=== PATIENT | female | born 1985 | race Caucasian/White ===

== ENCOUNTER 2021-10-30 18:29 | Emergency (ER) | payer OTHER ==
[~2021-10-30] VITALS: Ht 165 cm; Wt 63.0 kg
[2021-10-30 18:49] VITALS: BP 116/71
[2021-10-30] MEDS ORDERED: NS IV 1000 ML 1,000 ML IV SCH (19:30)
[2021-10-30] MEDS ORDERED: ONDANSETRON 4 MG/2 ML (SDV) Z0FRAN IVP ONE (19:30)
[2021-10-30] MEDS ORDERED: FAMOTIDINE 20MG/2ML IV (PEPCID) IVP ONE (19:30)
[2021-10-30 19:43] LABS: BASOPHILS % (AUTO) 0 % (0-10); EOSINOPHILS % (AUTO) 0 % (0-10); HEMATOCRIT 41 % (35-52); HEMOGLOBIN 14.3 g/dL (11.5-16.0); LYMPHOCYTES # (AUTO) 0.9 10^3/uL (1.0-4.0); LYMPHOCYTES % (AUTO) 9 % (12-44); MEAN CORPUSCULAR HEMOGLOBIN 31 pg (25-34); MEAN CORPUSCULAR HGB CONC 35 g/dL (32-36); MEAN CORPUSCULAR VOLUME 90 fL (80-99); MEAN PLATELET VOLUME 9.5 fL (9.0-12.2); MONOCYTES # (AUTO) 0.3 10^3/uL (0.0-1.0); MONOCYTES % (AUTO) 3 % (0-12); NEUTROPHILS # (AUTO) 9.1 10^3/uL (1.8-7.8); NEUTROPHILS % (AUTO) 88 % (42-75); PLATELET COUNT 256 10^3/uL (130-400); WHITE BLOOD COUNT 10.4 10^3/uL (4.3-11.0)
[2021-10-30] MEDS ORDERED: IOHEXOL 350 MG/ML 100 ML (OMNIPAQUE 350) VIAL IV ONE (19:45)
[2021-10-30] MEDS ORDERED: NS 100 ML (IVPB) BAG IV ONE (19:45)
[2021-10-30 20:00] LABS: LYMPHOCYTES % (MANUAL) 6 %; MONOCYTES % (MANUAL) 5 %; NEUTROPHILS % (MANUAL) 89 %; RBC MORPH NORMAL
[2021-10-30 20:08] LABS: ALBUMIN 4.4 GM/DL (3.2-4.5); BILIRUBIN,TOTAL 0.8 MG/DL (0.1-1.0); CALCIUM 9.6 MG/DL (8.5-10.1); CREATININE SERUM 0.85 MG/DL (0.60-1.30); POTASSIUM 3.6 MMOL/L (3.6-5.0); TOTAL PROTEIN 7.5 GM/DL (6.4-8.2)
[2021-10-30 20:13] LABS: BILIRUBIN,URINE NEGATIVE (NEGATIVE); CLARITY,URINE CLEAR; COLOR,URINE YELLOW; GLUCOSE, URINE (UA) NEGATIVE (NEGATIVE); KETONES,URINE 1+ (NEGATIVE); LEUKOCYTE ESTERASE ,URINE NEGATIVE (NEGATIVE); NITRITE,URINE NEGATIVE (NEGATIVE); PROTEIN,URINE 2+ (NEGATIVE)
[2021-10-30 20:19] LABS: BACTERIA,URINE NEGATIVE /HPF
[2021-10-30 20:27] LABS: AMPHETAMINE SCREEN, URINE NEGATIVE (NEGATIVE); BARBITURATE SCREEN URINE NEGATIVE (NEGATIVE); BENZODIAZEPINES SCREEN URINE NEGATIVE (NEGATIVE); CANNABINOID SCREEN, URINE POSITIVE (NEGATIVE); COCAINE SCREEN URINE NEGATIVE (NEGATIVE); HCG,QUALITATIVE URINE NEGATIVE (NEGATIVE); METHADONE STAT NEGATIVE (NEGATIVE); OPIATE SCREEN URINE NEGATIVE (NEGATIVE); OXYCODONE STAT NEGATIVE (NEGATIVE); PROPOXYPHENE STAT NEGATIVE (NEGATIVE); TRICYCLIC ANTIDEPRESSANTS SCRE NEGATIVE (NEGATIVE)
--- NOTE | 2021-10-30 20:36 | Diagnostic Imaging Report ---
EXAMINATION: CT abdomen and pelvis with intravenous contrast. TECHNIQUE: Multiple contiguous axial images were obtained through the abdomen and pelvis after the uneventful administration of intravenous contrast. All CT scans use one or more of the following dose optimizing techniques: automated exposure control, MA and/or KvP adjustment based on patient size and exam type or iterative reconstruction. HISTORY: Abdominal pain. Nausea and vomiting. COMPARISON: None available. FINDINGS: The heart is unremarkable. The included lung bases are clear. The liver has a somewhat heterogeneous appearance. No focal hepatic lesions are seen. The portal vein is patent. The gallbladder is nondistended. Cholelithiasis is present. The spleen, pancreas, adrenal glands, and kidneys have a normal appearance. There is no pathologically enlarged mesenteric or retroperitoneal adenopathy. The bowel loops are nondilated. The appendix is visualized in the right lower quadrant/right pelvis and has a normal appearance. There is no free fluid or free air. No acute osseous abnormalities. The urinary bladder is decompressed. IUD is in place. Trace physiologic free fluid is seen in the pelvis. There is no free air, loculated collection, or adenopathy in the pelvis. IMPRESSION: 1. Heterogeneous appearance of the liver which is nonspecific and can be seen with hepatitis or cirrhosis. No focal hepatic lesions are seen. Recommend correlation with LFTs. 2. Cholelithiasis. Consider liver gallbladder ultrasound to further evaluate. 3. Trace physiologic free fluid in the pelvis. Dictated by: Dictated on workstation # [id number]
--- NOTE | 2021-10-30 21:24 | ED Abdominal Pain ---
General Chief Complaint: Abdominal/GI Problems Stated Complaint: NAUSEA Nursing Triage Note: PT REPORTS TO ED FOR NAUSEA THAT STARTED AROUND 0530 THIS MORNING. PER PT SHE FELT HAD ABD. CRAMPING AND WENT TO HAVE BM. AFTER HAVING A HARD/RUNNY STOOL PT FELT A WAVE OF NAUSEA THAT CONTINUED UNITL 1800. NAUSEA HAS IMPROVED BUT PT WOULD LIKE TO GET CHECKED OUT. SISTER IN LAW AT BEDSIDE. PT AMB. TO FT3 WITHOUT DIFFICULTY. History of Present Illness Date Seen by Provider: October 30, 2021 Time Seen by Provider: 19:20 Initial Comments 4-year-old female here with complaints of epigastric and right upper quadrant pain with multiple episodes of nausea and vomiting today at home. Symptoms were sudden onset. Denies fever, chills, diarrhea, chest pain, shortness of breath. No sick contacts. Allergies and Home Medications Allergies Uncoded Allergies: PENICILLIN (Allergy, Unknown, 10/30/21) Patient Home Medication List Home Medication List Reviewed: Yes Review of Systems Review of Systems Constitutional: no symptoms reported EENTM: No Symptoms Reported Respiratory: No Symptoms Reported Cardiovascular: No Symptoms Reported Gastrointestinal: Abdominal Pain, Nausea, Vomiting Genitourinary: No Symptoms Reported Musculoskeletal: no symptoms reported Skin: no symptoms reported Psychiatric/Neurological: No Symptoms Reported Endocrine: No Symptoms Reported Hematologic/Lymphatic: No Symptoms Reported Past Rjrsroa-Qdkxaf-Ujsxcx Hx Patient Social History Tobacco Use?: Yes Tobacco type used: Cigarettes Smoking Status: Current Everyday Smoker Smokeless Tobacco Frequency: Current Everyday User Use of E-Cig and/or Vaping dev: Yes E-Cig or Vaping type used: Other Additional E-Cig or Vaping: DELTA 8 Substance use?: No Substance type: Marijuana Additional substance use comme: LAST USED 04/2021. Alcohol Use?: No Alcohol type: Hard Liquor Alcohol Frequency: Daily Pt feels they are or have been: No Past Medical History Surgery/Hospitalization HX: PMH:DENIES. SURGERIES:RT AC ARTIERAL REPAIR 2014. Physical Exam Vital Signs Vital Signs - First Documented 10/30/21 18:49 Temp 36.9 Pulse 66 Resp 16 B/P (MAP) 116/71 (86) Pulse Ox 99 O2 Delivery Room Air Capillary Refill : Less Than 3 Seconds Height/Weight/BMI Height: '" Weight: lbs. oz. kg; 23.00 BMI Method: General Appearance: mild distress HEENT: PERRL/EOMI Neck: full range of motion Respiratory: lungs clear, normal breath sounds Cardiovascular: normal peripheral pulses, regular rate, rhythm Gastrointestinal: normal bowel sounds, soft, no organomegaly, tenderness (RUQ and epigastric) Extremities: normal range of motion Back: normal inspection, no CVA tenderness Neurologic/Psychiatric: alert, normal mood/affect, oriented x 3 Skin: normal color Lymphatic: no adenopathy Progress/Results/Core Measures Results/Orders Lab Results Laboratory Tests Test 10/30/21 19:36 10/30/21 20:05 Range/Units White Blood Count 10.4 4.3-11.0 10^3/uL Red Blood Count 4.58 3.80-5.11 10^6/uL Hemoglobin 14.3 11.5-16.0 g/dL Hematocrit 41 35-52 % Mean Corpuscular Volume 90 80-99 fL Mean Corpuscular Hemoglobin 31 25-34 pg Mean Corpuscular Hemoglobin Concent 35 32-36 g/dL Red Cell Distribution Width 14.0 10.0-14.5 % Platelet Count 256 130-400 10^3/uL Mean Platelet Volume 9.5 9.0-12.2 fL Immature Granulocyte % (Auto) 0 % Neutrophils (%) (Auto) 88 H 42-75 % Lymphocytes (%) (Auto) 9 L 12-44 % Monocytes (%) (Auto) 3 0-12 % Eosinophils (%) (Auto) 0 0-10 % Basophils (%) (Auto) 0 0-10 % Neutrophils # (Auto) 9.1 H 1.8-7.8 10^3/uL Lymphocytes # (Auto) 0.9 L 1.0-4.0 10^3/uL Monocytes # (Auto) 0.3 0.0-1.0 10^3/uL Eosinophils # (Auto) 0.0 0.0-0.3 10^3/uL Basophils # (Auto) 0.0 0.0-0.1 10^3/uL Immature Granulocyte # (Auto) 0.0 0.0-0.1 10^3/uL Neutrophils % (Manual) 89 % Lymphocytes % (Manual) 6 % Monocytes % (Manual) 5 % Blood Morphology Comment NORMAL Sodium Level 138 135-145 MMOL/L Potassium Level 3.6 3.6-5.0 MMOL/L Chloride Level 103 98-107 MMOL/L Carbon Dioxide Level 19 L 21-32 MMOL/L Anion Gap 16 H 5-14 MMOL/L Blood Urea Nitrogen 18 7-18 MG/DL Creatinine 0.85 0.60-1.30 MG/DL Estimat Glomerular Filtration Rate 92 BUN/Creatinine Ratio 21 Glucose Level 129 H 70-105 MG/DL Calcium Level 9.6 8.5-10.1 MG/DL Corrected Calcium 9.3 8.5-10.1 MG/DL Total Bilirubin 0.8 0.1-1.0 MG/DL Aspartate Amino Transf (AST/SGOT) 21 5-34 U/L Alanine Aminotransferase (ALT/SGPT) 20 0-55 U/L Alkaline Phosphatase 63 40-136 U/L Total Protein 7.5 6.4-8.2 GM/DL Albumin 4.4 3.2-4.5 GM/DL Lipase 18 8-78 U/L Serum Alcohol < 10 <10 MG/DL Urine Color YELLOW Urine Clarity CLEAR Urine pH 8.0 5-9 Urine Specific Mccausland 1.015 L 1.016-1.022 Urine Protein 2+ H NEGATIVE Urine Glucose (UA) NEGATIVE NEGATIVE Urine Ketones 1+ H NEGATIVE Urine Nitrite NEGATIVE NEGATIVE Urine Bilirubin NEGATIVE NEGATIVE Urine Urobilinogen 0.2 < = 1.0 MG/DL Urine Leukocyte Esterase NEGATIVE NEGATIVE Urine RBC (Auto) 1+ H NEGATIVE Urine RBC NONE /HPF Urine WBC 5-10 H /HPF Urine Squamous Epithelial Cells 2-5 /HPF Urine Renal Epithelial Cells NONE /HPF Urine Crystals NONE /LPF Urine Bacteria NEGATIVE /HPF Urine Casts NONE /LPF Urine Mucus NEGATIVE /LPF Urine Culture Indicated NO Urine Test NEGATIVE NEGATIVE Urine Opiates Screen NEGATIVE NEGATIVE Urine Oxycodone Screen NEGATIVE NEGATIVE Urine Methadone Screen NEGATIVE NEGATIVE Urine Propoxyphene Screen NEGATIVE NEGATIVE Urine Barbiturates Screen NEGATIVE NEGATIVE Ur Tricyclic Antidepressants Screen NEGATIVE NEGATIVE Urine Phencyclidine Screen NEGATIVE NEGATIVE Urine Amphetamines Screen NEGATIVE NEGATIVE Urine Methamphetamines Screen NEGATIVE NEGATIVE Urine Benzodiazepines Screen NEGATIVE NEGATIVE Urine Cocaine Screen NEGATIVE NEGATIVE Urine Cannabinoids Screen POSITIVE H NEGATIVE My Orders Orders - HA HALL MD Comprehensive Metabolic Panel (10/30/21 19:27) Lipase (10/30/21 19:27) Ua Culture If Indicated (10/30/21 19:27) Urine Bedside (10/30/21 19:27) Ed Iv/Invasive Line Start (10/30/21 19:27) Cbc With Automated Diff (10/30/21 19:27) Ct Abdomen/Pelvis W (10/30/21 19:27) Alcohol (10/30/21 19:28) Drug Screen Stat (Urine) (10/30/21 19:28) Hcg,Qualitative Urine (10/30/21 19:28) Ondansetron Injection (Zofran Injectio (10/30/21 19:30) Ed Iv/Invasive Line Start (10/30/21 19:29) Ns Iv 1000 Ml (Sodium Chloride 0.9%) (10/30/21 19:30) Famotidine Injection (Pepcid Injection) (10/30/21 19:30) Iohexol Injection (Omnipaque 350 Mg/Ml 1 (10/30/21 19:45) Ns (Ivpb) (Sodium Chloride 0.9% Ivpb Bag (10/30/21 19:45) Manual Differential (10/30/21 19:36) Medications Given in ED Current Medications Medications Dose Ordered Sig/Zuri Route Start Time Stop Time Status Last Admin Dose Admin Famotidine 20 mg ONCE ONCE IVP 10/30/21 19:30 10/30/21 19:32 DC 10/30/21 19:43 20 MG Iohexol 100 ml ONCE ONCE IV 10/30/21 19:45 10/30/21 19:46 DC 10/30/21 20:30 80 ML Ondansetron HCl 4 mg ONCE ONCE IVP 10/30/21 19:30 10/30/21 19:32 DC 10/30/21 19:43 4 MG Sodium Chloride 100 ml ONCE ONCE IV 10/30/21 19:45 10/30/21 19:46 DC 10/30/21 20:30 80 ML Vital Signs/I&O 10/30/21 18:49 Temp 36.9 Pulse 66 Resp 16 B/P (MAP) 116/71 (86) Pulse Ox 99 O2 Delivery Room Air Blood Pressure Mean: 86 Progress Progress Note : Progress Note 1. GALLSTONES: - CT ABD & PELVIS: Gallstones - labs unremarkable - UDS is positive for marijuana but pt states she takes Delta 8 - In ER, IVF, Toradol, Pepcid , Zofran - Advise admission to Observation for pain control, u/s in the morning, fluids and surgery consult but pt wants to leave AMA. Risks and benefits explained but pt states she will come back later and insists to leave AMA. Diagnostic Imaging Diagonstic Imaging: CT Plain Films/CT/US/NM/MRI: abdomen Comments [facility] [place], [place] NAME: CORWIN GARCIA [facility] REC#: [id number] PT STATUS: REG ER : 1985 PHYSICIAN: HA HALL MD ADMIT DATE: 10/30/21/ER Signed Date of Exam:10/30/21 CT ABDOMEN/PELVIS W EXAMINATION: CT abdomen and pelvis with intravenous contrast. TECHNIQUE: Multiple contiguous axial images were obtained through the abdomen and pelvis after the uneventful administration of intravenous contrast. All CT scans use one or more of the following dose optimizing techniques: automated exposure control, MA and/or KvP adjustment based on patient size and exam type or iterative reconstruction. HISTORY: Abdominal pain. Nausea and vomiting. COMPARISON: None available. FINDINGS: The heart is unremarkable. The included lung bases are clear. The liver has a somewhat heterogeneous appearance. No focal hepatic lesions are seen. The portal vein is patent. The gallbladder is nondistended. Cholelithiasis is present. The spleen, pancreas, adrenal glands, and kidneys have a normal appearance. There is no pathologically enlarged mesenteric or retroperitoneal adenopathy. The bowel loops are nondilated. The appendix is visualized in the right lower quadrant/right pelvis and has a normal appearance. There is no free fluid or free air. No acute osseous abnormalities. The urinary bladder is decompressed. IUD is in place. Trace physiologic free fluid is seen in the pelvis. There is no free air, loculated collection, or adenopathy in the pelvis. IMPRESSION: 1. Heterogeneous appearance of the liver which is nonspecific and can be seen with hepatitis or cirrhosis. No focal hepatic lesions are seen. Recommend correlation with LFTs. 2. Cholelithiasis. Consider liver gallbladder ultrasound to further evaluate. 3. Trace physiologic free fluid in the pelvis. Dictated by: Dictated on workstation # [id number] Dict: 10/30/212030 Trans: 10/30/212038 [facility] [id number] Interpreted by: MIRYAM CLEMENTE DO Electronically signed by: MIRYAM CLEMENTE DO 10/30/212038 Departure Impression Primary Impression: Gallstones Additional Impression: Abdominal pain Qualified Codes: R10.11 - Right upper quadrant pain Disposition: 07 AGAINST MEDICAL ADVICE Condition: Against Medical Advice Departure-Patient Inst. Referrals: NO,LOCAL PHYSICIAN (PCP/Family) Primary Care Physician HA HALL MD October 30, 2021 21:24
== END 2021-10-30 21:28 | disposition left against medical advice (07) ==
LOC: ER 18:32
DX: K80.20 Calculus of gallbladder without cholecystitis without obstruction (principal); F17.210 Nicotine dependence, cigarettes, uncomplicated; F17.290 Nicotine dependence, other tobacco product, uncomplicated
CPT/HCPCS: 74177; 80053; 80306; 81000; 83690; 84703 ×2; 85007; 85027; 99284; G0480; 36415; 80320

== ENCOUNTER 2021-12-07 05:29 | Outpatient (CLI) | payer OTHER ==
[~2021-12-07] VITALS: Ht 165 cm; Wt 61.0 kg
[2021-12-14] MEDS ORDERED: ACHD5005 PO (10:35)
[2021-12-14] MEDS ORDERED: DOCU-143 PO (10:35)
== END 2021-12-08 09:52 | disposition home or self-care (01) ==
LOC: PREOP 05:29
PROVIDERS: ATTEND Surgery
DX: Z01.818 Encounter for other preprocedural examination (principal)

== ENCOUNTER 2021-12-14 07:43 | Day surgery (SDC) | payer OTHER ==
[2021-12-14] VITALS (12 sets, daily range): BP systolic 96–148; BP diastolic 53–88
[~2021-12-14] VITALS: Ht 165 cm; Wt 61.0 kg
--- NOTE | 2021-12-14 07:58 | Progress Note-Pre Operative ---
Pre-Operative Progress Note H&P Reviewed The H&P was reviewed, patient examined and no changes noted. Date Seen by Provider: Dec 14, 2021 Time Seen by Provider: 07:58 Date H&P Reviewed: Dec 14, 2021 Time H&P Reviewed: 07:58 Pre-Operative Diagnosis: epigastric pain, cholelithiasis DANIELE DO DO Dec 14, 2021 07:58
[2021-12-14] MEDS ORDERED: CLINDAMYCIN 600 MG/50 ML IVPB 50 ML IV ONE (08:00)
[2021-12-14] MEDS: LACTATED RINGERS 1,000 ML IV PRN ×2 (08:11→10:10)
[2021-12-14] MEDS ORDERED: ROCURONIUM 50 MG/5 ML (ZEMURON) VIAL IV ONE (08:14)
[2021-12-14] MEDS ORDERED: fentaNYL INJ 100 MCG/2 ML AMP ONE (08:14)
[2021-12-14] MEDS ORDERED: LIDOCAINE PF 2% 5 ML (XYLOCAINE) VIAL ONE (08:14)
[2021-12-14] MEDS ORDERED: MIDAZOLAM 2 MG/2 ML (VERSED) VIAL ONE ×2 (08:14→08:32)
[2021-12-14] MEDS ORDERED: GLYCOPYRROLATE 0.2 MG/ML (ROBINUL) 2 ML VIAL ONE (08:14)
[2021-12-14] MEDS ORDERED: ONDANSETRON 4 MG/2 ML (SDV) Z0FRAN ONE ×2 (08:14→11:05)
[2021-12-14] MEDS ORDERED: proPOfol 200 MG/20 ML (DIPRIVAN) VIAL IV ONE (08:14)
[2021-12-14] MEDS ORDERED: NEOSTIGMINE (BLOXIVERZ ) 1 MG/1ML 10 ML VIAL ONE (08:14)
[2021-12-14] MEDS ORDERED: MIDAZOLAM 2 MG/2 ML (VERSED) VIAL IV ONE (08:30)
[2021-12-14] MEDS ORDERED: HYDROmorphone 2 MG/ML VIAL (DILAUDID) IV ONE (08:30)
[2021-12-14] MEDS ORDERED: ONDANSETRON 4 MG/2 ML (SDV) Z0FRAN IVP PRN (08:30)
[2021-12-14] MEDS ORDERED: morphine INJ 10 MG/ML 1ML (SYR OR VIAL) IVP ONE (08:30)
[2021-12-14] MEDS ORDERED: LIDOCAINE/EPI 1%-1:100,000 (XYLOCAINE) 20ML ONE (09:00)
[2021-12-14] MEDS ORDERED: HYDROmorphone 2 MG/ML VIAL (DILAUDID) ONE ×2 (10:28→11:04)
[2021-12-14] MEDS ORDERED: SEVOFLURANE (ULTANE) 15 ML INHAL SOLN ONE (10:32)
--- NOTE | 2021-12-14 10:34 | Progress Note-Post Operative ---
Post-Operative Progess Note Surgeon (s)/Technician Anatomic Pathology (s) Surgeon DANIELE DO DO Technician Anatomic Pathology: Dr. Gruber to assist in retraction dissection and closure. Pre-Operative Diagnosis epigastric pain, cholelithiasis Post-Operative Diagnosis same Procedure & Operative Findings Date of Procedure 12/14/21 Procedure Performed/Findings PROCEDURE: Laparoscopic cholecystectomy with intraoperative cholangiogram. COMPLICATIONS: None. PROCEDURE: The patient was taken to the operating suite and was prepped and draped in sterile fashion. A surgical pause was performed. Just superior to the umbilicus, a 12 mm incision was made. Dissection was taken down to the fascia, which was then scored and grasped with a Jack and the abdomen was then entered. A 0 Vicryl suture was placed in a [id number] fashion and a Yanes trocar was placed and secured. Pneumoperitoneum was achieved. A 5mm trochar place in the subxyphoid and 2 in the right upper quadrant. The gallbladder was then grasped and elevated. The cystic duct, and cystic artery were then dissected out. Clip was placed on the distal portion of the cystic duct which was then partially transected. An arrow catheter was inserted into the duct. The cholangiogram was then performed. No filing defects and contrast made its way into the duodenum. Catheter removed. Clips were placed on proximal portion of the cystic duct and then the duct was then transected. Clips were placed along the proximal and distal portion of the cystic artery which was then transected. Hook cautery was used to dissect the gallbladder from the gallbladder fossa achieving hemostasis. The gallbladder was placed in an Endobag and removed through the 12 mm trocar site. The abdomen was then reinspected. Copious amounts of irrigation were used to irrigate the abdomen and there were no signs of active bleeding. Hemostasis had been achieved. The 12 mm fascial defect was then closed with 0 Vicryl suture that had been placed in a [id number] fashion. The abdomen was then desufflated, the trocars were removed. The abdomen was then washed and dried. The skin was then closed using 4-0 Monocryl in a subcuticular fashion. The abdomen was washed and dried and Skin Affix was place over incisions. Patient tolerated the procedure well without any complications and was taken to the recovery room in stable condition. Anesthesia Type general Estimated Blood Loss Estimated blood loss (mL): minimal Specimens/Packing Specimens Removed gallbladder DANIELE DO DO Dec 14, 2021 10:34
[2021-12-14] MEDS ORDERED: ACHD5005 PO (10:35)
[2021-12-14] MEDS ORDERED: DOCU-143 PO (10:35)
--- NOTE | 2021-12-14 10:37 | Discharge Inst-Simple/Standard ---
Discharge Inst-Standard Discharge Medications New, Converted or Re-Newed RX: Transmitted to Pharmacy Patient Instructions/Follow Up Plan of Care/Instructions/FU: 2 weeks Ender Activity as Tolerated: No Discharge Diet: Regular Diet Other Inst to Patient Follow up Appt: Make appointment for 2 weeks. Instructions: No lifting greater than 10 pounds. No strenuous activity. May shower in 24 hours, no tub bath or soaking. Use incentive spirometer at home as directed. No Smoking Skin/Wound Care: You have special glue over incision, it will fall off on it's own. Symptoms to Report: Appetite Changes, Extremity Discoloration, Numbness/Tingling, Swelling Increased, Bleeding Excessive, Eyesight Changes, Pain Increased, Urine Color Change, Constipation(Persistent), Fever over 101 degree F, Pain/Pressure in chest, Urinating Difficulty, Cough Up/Vomit Blood, Heart Beat Irreg/Pounding, Pain/Pressure in jaw, Vaginal Bleeding Increase, Cramps in feet or legs, Lightheadedness, Pain/Pressure in shoulder, Diarrhea(Persistent), Memory Changes Suddenly, Questions/Concerns, Weight gain consecutive days, Dizziness/Fainting, Nausea/Vomiting, Shortness of Breath, Weight gain over 2 pounds. If eyes or skin turn yellow notify physician. If questions or concerns contact your physician Or seek help at emergency department. DANIELE DO DO Dec 14, 2021 10:37
--- NOTE | 2021-12-14 11:07 | Diagnostic Imaging Report ---
INDICATION: Fluoroscopy for intraoperative cholangiogram. Fluoroscopy was provided in the OR during intraoperative cholangiogram. Eight seconds of fluoroscopic time was utilized. 31 images were obtained. The images demonstrate contrast being injected via the cystic duct remnant. Intrahepatic and extrahepatic bile ducts are normal caliber. There are no filling defects to suggest retained stones. Contrast does flow into the duodenum. IMPRESSION: Fluoroscopy for intraoperative cholangiogram. Dictated by: Dictated on workstation # [id number]
[2021-12-14] MEDS ORDERED: MEPERIDINE (DEMEROL) INJ 50 MG/ML ONE (11:22)
[2021-12-14] MEDS ORDERED: MEPERIDINE (DEMEROL) INJ 50 MG/ML IVP ONE (11:30)
--- NOTE | 2021-12-14 12:12 | Anesthesia-General Post-Op ---
General Patient Condition Mental Status/LOC: Same as Preop Cardiovascular: Satisfactory Nausea/Vomiting: Absent Respiratory: Satisfactory Pain: Controlled Complications: Absent Post Op Complications Complications None Follow Up Care/Instructions Patient Instructions None needed. Anesthesia/Patient Condition Patient Condition Patient is doing well, no complaints, stable vital signs, no apparent adverse anesthesia problems. No complications reported per nursing. RASHIDA SALEH DO Dec 14, 2021 12:12
== END 2021-12-14 12:50 | disposition home or self-care (01) ==
LOC: SDC 07:43
PROVIDERS: ATTEND Surgery
DX: K80.10 Calculus of gallbladder with chronic cholecystitis without obstruction (principal); Z28.310 Unvaccinated for COVID-19; Z88.0 Allergy status to penicillin; F17.290 Nicotine dependence, other tobacco product, uncomplicated
CPT/HCPCS: 76000; 84703; 87081